=== PATIENT | female | born 1950 | race Caucasian/White ===

== ENCOUNTER 2023-07-13 02:54 | Emergency (ER) | payer MEDICARE, OTHER, SELFPAY ==
[2023-07-13 02:54] VITALS: BMI 30.5
[2023-07-13 02:57] VITALS: BP 184/74
[2023-07-13 05:22] VITALS: BP 179/72
[2023-07-13 05:53] VITALS: BP 179/69
--- NOTE | 2023-07-13 06:02 | ED.GENMED ---
History of Present Illness
General
Chief Complaint: Blood Pressure Problem
Source: patient and previous hospital records ([facility] ED visit for very similar complaint 2 months ago. Unremarkable laboratory studies, EKG. Hypertension improved without specific intervention.)
Exam Limitations: none
Time Seen by Provider: 07/13/23 05:41
Nursing documentation reviewed up to this point in time: agreed with
Travel History
Have you had any contact with someone who has COVID-19?: No
Do you have any symptoms of coronavirus? Fever > 100 degrees, chills, cough, shortness of breath, sore throat, loss of taste or smell, muscle aches, or headache?: No
History of Present Illness
History of Present Illness:
This is a 72-year-old woman who has longstanding history of hypertension. She states her blood pressure generally runs in the 150s to 160s over 70s. She has history of hyperlipidemia, sinus bradycardia. She follows with an outside appraisal analyst,
Dr. Glen Keenan. Patient generally checks her blood pressure once at night prior to bed and admits that blood pressure is generally elevated 150s to 160s but tonight she was concerned when systolic blood pressure was 190/70. She admits to
feeling mild palpitations but no chest pain, no shortness of breath. Otherwise feeling well. No dizziness nor lightheadedness, no headache.
Very similar symptomatology during ED visit May 14. Moderately elevated blood pressure at that time. Unremarkable laboratory studies. At that time patient had been taking amlodipine 5 mg only sporadically with elevated blood pressure and had
taken 5 mg of amlodipine prior to arrival. Blood pressure improved to 150s without further medications.
Patient has followed up with her appraisal analyst and May 19 she was prescribed valsartan 80 mg to take once daily. Patient admits that she has not started this medicine until just 1 week ago, and even since then she has not been persistently
taking it on a daily basis.
Tonight with elevated blood pressure she took her dose of valsartan and 40 minutes later when blood pressure remained elevated she took a dose of amlodipine 5 mg.
She presents to the ED for further evaluation, concern for elevated BP. She continues to deny any other symptoms.
Past History
Past History
ED Past Medical History: HTN, Hypercholesterolemia, Psychiatric (Depression) and Other (Prediabetic; bradycardia)
ED Past Surgical History: None
Social History
Tobacco: Non-smoker
Alcohol: Occasional
Drug: None
Living: with family
Employment: Retired
Family History
Family History: Hypertension
Phy Exam
Physical Exam
Physical Exam:
GENERAL: 72-year-old woman appears younger than stated age, awake and alert, pleasant, easily communicative, in no acute distress.
EYE: pupils equal and reactive. anicteric
NECK: Supple, nontender, no meningismus, no significant adenopathy.
ENT: oral mucosa is moist. No rhinorrhea.
CARDIAC: Regular rate and rhythm. no murmur.
LUNGS: Clear breath sounds bilaterally, no acute respiratory distress, no wheezes/rales/rhonchi
ABDOMEN: Soft, nondistended, without focal tenderness,. normoactive BS.
NEUROLOGICAL: Alert and oriented x3, no focal neuro deficits. Gait is christensen and steady.
SKIN: Warm and dry, normal color, skin intact. No rash.
MUSCULOSKELETAL: No C/C/E. peripheral pulses are full and equal b/l. No palpable tenderness.
PSYCH: Normal and appropriate interaction.
Course
Orders/Labs/Results
Orders:
Orders
07/13/23 03:02
EKG [Electrocardiogram (*1)] Urgent
Reason for Study: Hypertension, Benign
EKG- Treatment ONCE
07/13/23 06:01
Valsartan [Diovan] 80 mg PO NOW STA
Vital Signs
Initial and Last Documented VS:
Initial Vital Signs
Temp Pulse Resp BP Pulse Ox
98.2 F 48 18 184/74 98
07/13/23 02:57 07/13/23 02:57 07/13/23 02:57 07/13/23 02:57 07/13/23 02:57
Last Documented Vital Signs
Temp Pulse Resp BP Pulse Ox
98.2 F 52 18 179/69 96
07/13/23 02:57 07/13/23 06:11 07/13/23 02:57 07/13/23 06:11 07/13/23 06:00
MDM/Problems Addressed
Differential Diagnosis Includes:
Patient presents with elevated blood pressure with longstanding history of relatively poorly controlled hypertension generally runs 150s to 160s over 70.
Has been prescribed various blood pressure medications, most recently began valsartan 80 mg daily just a week ago however this was prescribed May 19.
Moderately elevated systolic blood pressure without other associated symptoms.
Clinically patient appears well. She had no chest pain, no shortness of breath. Lungs are clear to auscultation. Appears euvolemic.
Unremarkable laboratory studies just 2 months ago with very similar complaints.
EKG shows sinus bradycardia, left bundle branch block, similar and unchanged from previous EKG May 14, 2023.
Blood pressure is improving currently 179/69.
Will give an additional dose of valsartan and 80 mg now. I suspect her current blood pressure medications are will need to be titrated up. Patient does admit that her appraisal analyst voiced the same opinion.
However, as she has just begun persistently taking valsartan just 1 week ago, recommend continuing her current dose of losartan at 80 mg daily and to be consistent with this on a daily basis.
Recommend she continue to take her blood pressure but only once per day, record results and then follow-up with her appraisal analyst with blood pressure readings.
Patient has been encouraged to reach out to her appraisal analyst today to discuss her antihypertensive regimen.
With similar complaint, unremarkable laboratory studies just 2 months ago, no indication to repeat.
Return precautions discussed.
Chronic conditions affecting care: HTN
Acute Exacerbation and/or Progression of Chronic Illness: HTN
*Pulse Oximetry
Patient hypoxic: no
*EKG
Interpreted by ED Provider?: Yes
Comparison EKG: no changes (Unchanged from previous April 2023)
Rate: bradycardiac
Rhythm: sinus
[place]: left axis deviation
Interval: first degree heart block
QRS Pattern: left bundle branch block
Ischemia: no ischemia
*[place] [facility] Interpretation
Rate: bradycardiac
Interpretation: normal
Rhythm: sinus
*Critical Care Note
Total Time (30-74mins, 75-104mins- exclusive of procedures): Not Applicable
ED Attending Note
-
Portions of this chart may have been created with voice recognition software.� Occasional wrong word or��sound alike� substitutions may have occurred due to the inherent limitations of voice recognition software.
Discharge Plan
Departure
Patient Disposition: Home (Routine Discharge)
Date of Disposition: 07/13/23
Time of Disposition: 06:23
Patient with high blood pressure during this ER visit?: No
Condition: Good
Discharge Problem:
Accelerated essential hypertension
Instructions: High Blood Pressure (DC)
Prescriptions:
No Action
atorvastatin 10 mg Tablet
10 mg PO HS
escitalopram oxalate [Lexapro] 20 mg Tablet
20 mg PO DAILY
vit D3-folic [id number] 2,000-800-0.32 unit-mcg-mg Tablet
1 tab PO DAILY
Referrals:
Carey Lynn MD [Family Provider] -
Glen Keenan MD [Active] - Next open appointment
Activity Restrictions/Additional Instructions:
Continue your valsartan 80 mg once daily.
Continue to monitor your blood pressure, only once daily, record results and then put that cuff away until the following day. You can check your blood pressure at varying times of the day but only once per day and record date and time and BP result.
Follow-up with your appraisal analyst with blood pressure recordings.
Call your appraisal analyst today to discuss your elevated blood pressure and discuss antihypertensive medication regimen. It appears you are due for a refill of the valsartan.
Interventions
Interventions:
*Risk Screen - Suicide Last Done: 07/13/23 03:03
*General Assessment Last Done: 07/13/23 03:03
*Neglect/Abuse Screening Last Done: 07/13/23 03:03
*ED COVID-19 Vaccine History Last Done: 07/13/23 03:03
ED- Cardiac Assessment Last Done: 07/13/23 05:26
ED- Neurological Assessment Last Done: 07/13/23 05:26
ED- Pulmonary Assessment Last Done: 07/13/23 05:26
[2023-07-13] MEDS: DIOVAN 80 MG PO (06:11)
== END 2023-07-13 06:41 | disposition home or self-care (01) ==
LOC: EMR 02:54
PROVIDERS: EMERGENCY PHYSICIAN Emergency Medicine; FAMILY PHYSICIAN Internal Medicine
DX: I10 Essential (primary) hypertension (principal); E78.00 Pure hypercholesterolemia, unspecified
CPT/HCPCS: 99283; 93005

== ENCOUNTER 2024-05-06 02:04 | Emergency (ER) | payer MEDICARE, OTHER, SELFPAY ==
[2024-05-06 02:25] VITALS: BP 176/72
--- NOTE | 2024-05-06 02:43 | ED.GENMED ---
History of Present Illness
General
Chief Complaint: Blood Pressure Problem
Source: patient and previous hospital records (ED visit June this year for very similar complaint)
Exam Limitations: none
Time Seen by Provider: 05/06/24 02:23
Nursing documentation reviewed up to this point in time: agreed with
History of Present Illness
History of Present Illness:
This is a 73-year-old woman who has a longstanding history of hypertension. She admits that her blood pressure generally runs in the 150s to 160s systolic over 70s to 80s.
She follows regularly with a terrazzo finisher, Dr. Glen Keenan.
Initially had been hesitant to change/add blood pressure medications and she does admit to checking her blood pressure multiple times a day.
More recently her blood pressure has been elevated in the 170s to 180s and valsartan has been titrated up over the past several months, initially 40 mg twice daily then 1 week ago increased to 80 mg twice daily and then 2 days ago increased to 160
mg twice daily. Despite this increase she was worried that her blood pressure remained elevated at 190 systolic and at 1 point her blood pressure read 230/100. She did take a dose of amlodipine tonight just prior to arrival, 5 mg.
She otherwise has been feeling well, she denies headache, denies chest pain, no palpitations, no dizziness nor lightheadedness, no shortness of breath, no weakness nor numbness.
She has no leg pain or swelling.
She was noted to have very similar complaints during ED visit June of this year. Similar complaints of elevated blood pressure without other accompanying symptoms.
Unremarkable ED visit at that time including unremarkable EKG, unremarkable laboratory studies.
Past History
Past History
ED Past Medical History: HTN, Hypercholesterolemia, Psychiatric (Depression) and Other (Prediabetic; bradycardia)
ED Past Surgical History: Cholecystectomy
Social History
Tobacco: Non-smoker
Alcohol: Occasional
Drug: None
Personal:
Living: with family
Employment: Retired
Family History
Family History: Hypertension
Phy Exam
Physical Exam
Physical Exam:
GENERAL: 73-year-old woman appears somewhat younger than stated age, bright and alert, pleasant, appears in no acute distress.
EYE: pupils equal and reactive. anicteric
NECK: Supple, nontender, no meningismus, no significant adenopathy. No JVD.
ENT: oral mucosa is moist. No rhinorrhea.
CARDIAC: Regular rate and rhythm. no murmur. Holter monitor in place on chest wall.
LUNGS: Clear breath sounds bilaterally, no acute respiratory distress, no wheezes/rales/rhonchi
ABDOMEN: Soft, nondistended, without focal tenderness, no r/g, no cvat. normoactive BS.
NEUROLOGICAL: Alert and oriented x3, no focal neuro deficits. Gait is christensen and steady.
SKIN: Warm and dry, normal color, skin intact. No rash.
MUSCULOSKELETAL: No C/C/E. peripheral pulses are full and equal b/l. No palpable tenderness.
PSYCH: Normal and appropriate interaction.
Course
Vital Signs
Initial and Last Documented VS:
Initial Vital Signs
Temp Pulse Resp Pulse Ox
97.6 F 54 18 97
05/06/24 02:07 05/06/24 02:07 05/06/24 02:07 05/06/24 02:07
Last Documented Vital Signs
Temp Pulse Resp BP Pulse Ox
97.6 F 54 18 175/65 97
05/06/24 02:07 05/06/24 02:07 05/06/24 02:07 05/06/24 02:46 05/06/24 02:07
MDM/Problems Addressed
Differential Diagnosis Includes:
73-year-old woman with longstanding history of hypertension presents to the ED with complaints of elevated blood pressure reading tonight. Notes that blood pressure has been running elevated over the past several weeks with recent up titration of
BP medications. Following regularly with her terrazzo finisher.
She continues to have no accompanying symptoms.
She does admit that her blood pressure tends to rise when she becomes anxious and worried about her blood pressure readings.
Overall well in appearance.
Initial blood pressure 176/72. Improving to 170/60.
Overall exam is benign, reassuring.
Similar ED visits for similar complaints with unremarkable laboratory studies, imaging and EKGs. At this point no indication to repeat.
I do suspect anxiety is playing a significant role in her accelerated hypertension.
BP improving without ED intervention.
Will discharge to home with recommendations she continue to monitor her blood pressure but only once per day, record results and then put that cuff away until the following day.
Continue valsartan 160 mg twice daily as prescribed by terrazzo finisher.
Continue prompt follow-up with terrazzo finisher as already scheduled.
Chronic conditions affecting care: HTN and Psychiatric illness (Anxiety)
Acute Exacerbation and/or Progression of Chronic Illness: HTN and Psychiatric illness (Anxiety)
*Critical Care Note
Total Time (30-74mins, 75-104mins- exclusive of procedures): Not Applicable
ED Attending Note
-
Portions of this chart may have been created with voice recognition software.� Occasional wrong word or��sound alike� substitutions may have occurred due to the inherent limitations of voice recognition software.
Discharge Plan
Departure
Patient Disposition: Home (Routine Discharge)
Date of Disposition: 05/06/24
Time of Disposition: 02:43
Patient with high blood pressure during this ER visit?: No
Condition: Good
Discharge Problem:
Accelerated essential hypertension, anxiety regarding health
Instructions: High Blood Pressure (DC), Relaxation Techniques
Prescriptions:
No Action
atorvastatin 10 mg Tablet
10 mg PO HS
escitalopram oxalate [Lexapro] 20 mg Tablet
20 mg PO DAILY
vit D3-folic [id number] 2,000-800-0.32 unit-mcg-mg Tablet
1 tab PO DAILY
Referrals:
Glen Keenan MD [Active] - Call in 1-3 days for appt
Interventions
Interventions:
*Risk Screen - Suicide Last Done: 05/06/24 02:07
*General Assessment Last Done: 05/06/24 02:07
*Neglect/Abuse Screening Last Done: 05/06/24 02:46
ED- Fall Risk Assessment Last Done: 05/06/24 02:26
*ED COVID-19 Vaccine History Last Done: 05/06/24 02:46
*Nursing Disposition Last Done: 05/06/24 02:46
ED- Cardiac Assessment Last Done: 05/06/24 02:26
ED- Neurological Assessment Last Done: 05/06/24 02:26
ED- Pulmonary Assessment Last Done: 05/06/24 02:26
Discharge Date and Time
Discharge Date/Time: 05/06/24 02:54
Print Language: TURKISH
[2024-05-06 02:46] VITALS: BP 175/65
== END 2024-05-06 02:54 | disposition home or self-care (01) ==
LOC: EMR 02:04
PROVIDERS: EMERGENCY PHYSICIAN Emergency Medicine; FAMILY PHYSICIAN Internal Medicine
DX: I10 Essential (primary) hypertension (principal); F41.8 Other specified anxiety disorders; E78.00 Pure hypercholesterolemia, unspecified; Z82.49 Family history of ischemic heart disease and other diseases of the circulatory system; Z90.49 Acquired absence of other specified parts of digestive tract
CPT/HCPCS: 99282

== ENCOUNTER 2024-07-04 01:13 | Emergency (ER) | payer MEDICARE, OTHER, SELFPAY ==
[2024-07-04 01:15] VITALS: BP 182/72
--- NOTE | 2024-07-04 02:24 | ED.GENMED ---
History of Present Illness
General
Chief Complaint: Blood Pressure Problem
Source: patient and previous hospital records (Previous ED visits for similar complaints.)
Exam Limitations: none
Time Seen by Provider: 07/04/24 01:52
Nursing documentation reviewed up to this point in time: agreed with
History of Present Illness
History of Present Illness:
This is a 73-year-old woman who has a longstanding history of hypertension. Follows with PCP as well as with extermination supervisor, Dr. Glen Keenan.
Chronically maintained on valsartan hand twice daily and states her blood pressure generally runs 150s to 160s over 70s to 80s.
She has been trialed on various different antihypertensive medications including nifedipine, amlodipine with various adverse reactions.
She presents to the ED tonight with complaints of elevated blood pressure in the 180s to 190 despite taking her valsartan 160 mg tonight. She admits to checking her blood pressure repeatedly throughout the evening without improvement in blood
pressure. She also admits to significant ongoing worry regarding her hypertension.
Very similar complaints during ED visits May 2023, June 2023 and again April 2024. Unremarkable evaluations at that time including unremarkable laboratory studies, unremarkable EKG.
She continues to deny headache, no chest pain, no shortness of breath, no dizziness nor lightheadedness, no palpitations but she does admit that she can occasionally 'feel her heart beat in her chest' She denies a sense of skipped beat nor rapid
heartbeat. No leg pain or swelling.
No change in weight.
Along with valsartan hand tonight patient took a dose of clonidine 0.1 mg around 11:45 PM. She is prescribed clonidine by her extermination supervisor for as needed hypertension. She admits to rarely taking clonidine.
Past History
Past History
ED Past Medical History: HTN, Hypercholesterolemia, Psychiatric (Depression) and Other (Prediabetic; bradycardia)
ED Past Surgical History: Cholecystectomy
Social History
Tobacco: Non-smoker
Alcohol: Occasional
Drug: None
Personal:
Living: with family
Employment: Retired
Family History
Family History: Hypertension
Phy Exam
Physical Exam
Physical Exam:
GENERAL: 73-year-old woman appears her stated age, awake and alert, pleasant, appears in no acute distress. Easily communicative. is accompanying.
EYE: pupils equal and reactive. anicteric
NECK: Supple, nontender, no meningismus, no significant adenopathy.
ENT: oral mucosa is moist. No rhinorrhea.
CARDIAC: Regular rate and rhythm. no murmur.
LUNGS: Clear breath sounds bilaterally, no acute respiratory distress, no wheezes/rales/rhonchi
ABDOMEN: Soft, nondistended, without focal tenderness, no bruit. Normoactive BS.
NEUROLOGICAL: Alert and oriented x3, no focal neuro deficits. Gait is christensen and steady.
SKIN: Warm and dry, normal color, skin intact. No rash.
MUSCULOSKELETAL: No C/C/E. peripheral pulses are full and equal b/l. No palpable tenderness.
PSYCH: Normal and appropriate interaction.
Course
Orders/Labs/Results
Orders:
Orders
07/04/24 01:18
Electrocardiogram (*1) Urgent
Reason for Study: Hypertension, Benign
EKG- Treatment ONCE
CMP [Comprehensive Metabolic Panel] Urgent
Complete Blood Count/With Diff Urgent
Vital Signs
Initial and Last Documented VS:
Initial Vital Signs
Temp Pulse Resp BP Pulse Ox
97.4 F 55 18 182/72 99
07/04/24 01:15 07/04/24 01:15 07/04/24 01:15 07/04/24 01:15 07/04/24 01:15
Last Documented Vital Signs
Temp Pulse Resp BP Pulse Ox
97.4 F 55 18 182/72 99
07/04/24 01:15 07/04/24 01:15 07/04/24 01:15 07/04/24 01:15 07/04/24 01:15
MDM/Problems Addressed
Differential Diagnosis Includes:
Patient presents with concern for elevated blood pressure. No other associated symptoms.
Similar concerns during ED visit May 2023, June 2023 and most recently April 2024.
Unremarkable evaluations on each visit and blood pressure improved without intervention.
There is significant underlying anxiety and chronic worry regarding her blood pressure and admits to monitoring her blood pressure frequently and does note blood pressure trends up when she becomes anxious and worried.
Overall well in appearance.
Hypertension appears asymptomatic. No evidence in history nor exam concerning for endorgan damage.
Blood pressure has improved to 166/62 without intervention. This is near patient's baseline that generally runs 150-160.
I have again discussed with patient that I recommend she monitor her blood pressure but only once per day, record results and then put that cuff away until the following day.
Recommend she follow-up with her primary care physician as well as extermination supervisor with BP readings.
Encouraged to continue her twice daily valsartan as directed by extermination supervisor.
She apparently has been trialed on several different antihypertensive medications with various different adverse effects thus at this point we will hold off on adjusting medications and instead recommend she follow-up as above with physicians who
are privy to her history, medication reactions.
Return precautions discussed.
Chronic conditions affecting care: HTN and Psychiatric illness (Chronic worry/anxiety regarding hypertension)
Acute Exacerbation and/or Progression of Chronic Illness: HTN
*Pulse Oximetry
Patient hypoxic: no
*EKG
Interpreted by ED Provider?: Yes
Interpretation: normal
Comparison EKG: no changes (Unchanged from previous April 2024)
Rate: bradycardiac
Rhythm: sinus
[place]: normal axis
Interval: first degree heart block
QRS Pattern: left bundle branch block
Ischemia: no ischemia
*Critical Care Note
Total Time (30-74mins, 75-104mins- exclusive of procedures): Not Applicable
ED Attending Note
-
Portions of this chart may have been created with voice recognition software.� Occasional wrong word or��sound alike� substitutions may have occurred due to the inherent limitations of voice recognition software.
Discharge Plan
Departure
Patient Disposition: Home (Routine Discharge)
Date of Disposition: 07/04/24
Time of Disposition: 02:24
Patient with high blood pressure during this ER visit?: No
Condition: Good
Discharge Problem:
Accelerated essential hypertension
Instructions: High Blood Pressure (DC)
Prescriptions:
No Action
atorvastatin 10 mg Tablet
10 mg PO HS
escitalopram oxalate [Lexapro] 20 mg Tablet
20 mg PO DAILY
vit D3-folic [id number] 2,000-800-0.32 unit-mcg-mg Tablet
1 tab PO DAILY
Referrals:
Carey Lynn MD [Family Provider] - Call in 1-3 days for appt
Glen Keenan MD [Active] - Call in 1-3 days for appt
Activity Restrictions/Additional Instructions:
Continue current medications including twice daily valsartan.
Continue to avoid added salt, avoid high sodium foods.
Stay well-hydrated on a daily basis.
Continue to monitor your blood pressure but only once per day, record results and then put that cuff away until the following day.
Follow-up with your primary care physician as well as extermination supervisor with blood pressure readings.
Interventions
Interventions:
*Risk Screen - Suicide Last Done: 07/04/24 01:14
*General Assessment Last Done: 07/04/24 01:52
*Neglect/Abuse Screening Last Done: 07/04/24 01:14
Discharge Date and Time
Print Language: [id number]
[2024-07-04 02:35] VITALS: BP 166/62
== END 2024-07-04 02:37 | disposition home or self-care (01) ==
LOC: EMR 01:13
PROVIDERS: EMERGENCY PHYSICIAN Emergency Medicine; FAMILY PHYSICIAN Internal Medicine
DX: I10 Essential (primary) hypertension (principal); E78.00 Pure hypercholesterolemia, unspecified; Z79.899 Other long term (current) drug therapy; Z90.49 Acquired absence of other specified parts of digestive tract
CPT/HCPCS: 99283; 93005